=== PATIENT | female | born 1995 | race Caucasian/White ===

== ENCOUNTER → 2020-09-20 | Outpatient (CLI) | payer SELFPAY | LOC: M LABSMTC 13:38 | PROVIDERS: ATTEND Pediatrics | DX: Z20.828 Contact with and (suspected) exposure to other viral communicable diseases (principal) ==

== ENCOUNTER → 2021-07-26 | Outpatient (CLI) | payer OTHER ==
--- NOTE | 2021-07-26 15:50 | REP ---
INDICATION: PREG 19+ WKS GROWTH COMPARISON: None. TECHNIQUE: Transabdominal obstetrical ultrasound with color Doppler evaluation. FINDINGS: Examination demonstrates a single live intrauterine in breech presentation. motion is identified by technologist. Placenta is noted posterior and grade 0 without evidence for placenta previa or abruption. Amniotic fluid volume is normal. Cervix measures 3.1 cm in length and appears closed.. Selected gestational age: 20 weeks 3 days with RAFFI 12/10/2021. Gestational age by current measurements 20 weeks 2 days with RAFFI 12/11/2021. FHR equals 133 beats per minute. BPD: 4.8 cm at 20 weeks 3 days HC: 17.9 cm at 20 weeks 2 days AC: 14.8 cm at 20 weeks 1 day FL: 3.2 cm at 20 weeks 0 days HL: 3.1 cm at 20 weeks 2 days HC/AC: 1.21 Estimated weight 332 grams (29thpercentile). Anatomical assessment demonstrates normal structures including cranium, choroid plexus, cavum, cerebellum/posterior fossa, facial features, lungs, diaphragm, stomach, cord insertion/three-vessel cord, kidneys/bladder, spine, and extremities. IMPRESSION: Single live intrauterine in breech presentation. Limited evaluation of the heart/ventricular outflow tracts. Remainder of the anatomical assessment is complete and normal. <Electronically signed by Esteban Cruz > 07/26/21 [id number]
== END ==
LOC: M RAD 14:15
PROVIDERS: ATTEND Advanced Practice Midwife
DX: Z36.3 Encounter for antenatal screening for malformations (principal); Z3A.20 20 weeks gestation of pregnancy

== ENCOUNTER 2021-10-24 11:36 | Outpatient (CLI) | payer OTHER ==
[~2021-10-24] VITALS: Ht 167.6 cm; Wt 87.8 kg
[2021-10-24 11:57] VITALS: BP 146/88
[2021-10-24] MEDS ORDERED: PRENTAB9 PO (12:05)
[2021-10-24] MEDS ORDERED: TUMS500C PO (12:05)
[2021-10-24 12:12] VITALS: BP 139/82
[2021-10-24] MEDS ORDERED: LR 1,000 ML IV ONE (14:40)
[2021-10-24 15:39] VITALS: BP 144/96
[2021-10-24 15:45] LABS: HEMATOCRIT 40.6 % (36.0-47.0); HEMOGLOBIN 13.8 g/dl (12.0-15.5); MEAN CORPUSCULAR HEMOGLOBIN 29.9 pg (27.0-33.0); MEAN CORPUSCULAR VOLUME 87.9 fl (80.0-96.0); PLATELET COUNT, AUTOMATED 265 10^3/uL (150-450); RED BLOOD COUNT 4.62 10^6/uL (4.00-5.40); WHITE BLOOD COUNT 10.2 10^3/uL (4.0-10.0)
[2021-10-24 15:55] VITALS: BP 153/100
[2021-10-24 16:03] LABS: INR 0.88; PROTHROMBIN TIME 12.3 SECONDS (12.7-14.5)
[2021-10-24 16:04] LABS: PARTIAL THROMBOPLASTIN TIME 30.7 SECONDS (25.9-37.0)
[2021-10-24] MEDS ORDERED: BETAMETHASONE SOLUSPAN 6MG/ML 5ML VIAL (J0702 PER 3MG) IM SCH (16:05)
[2021-10-24 16:10] VITALS: BP 130/81
[2021-10-24 16:30] LABS: ALT/SGPT 33 U/L (12-78); BILIRUBIN,TOTAL 0.2 MG/DL (0.2-1.0); CREATININE FOR GFR 0.65 MG/DL (0.55-1.30); GLOMERULAR FILTRATION RATE > 60.0 (>60); LDH LACTATE DEHYDROGENASE 200 U/L (84-246); URIC ACID 3.2 MG/DL (2.6-6.0)
[2021-10-24 16:40] LABS: CREATININE,RANDOM URINE < 13.0 MG/DL; TOTAL PROTEIN,RANDOM URINE < 5.0 MG/DL (0.0-12.0)
[2021-10-25] MEDS ORDERED: PEPC10TA6 PO (17:06)
[2021-10-25] MEDS ORDERED: VALT1TAB PO (17:06)
[2021-10-25] MEDS ORDERED: D31000TA2 PO (17:06)
== END 2021-10-24 17:18 | disposition home or self-care (01) ==
LOC: M LDO 11:36
PROVIDERS: ATTEND Registered Nurse
DX: O60.03 Preterm labor without delivery, third trimester (principal); O9A.213 Injury, poisoning and certain other consequences of external causes complicating pregnancy, third trimester; O26.893 Other specified pregnancy related conditions, third trimester; R25.2 Cramp and spasm; Y92.9 Unspecified place or not applicable; Y93.9 Activity, unspecified; Y99.9 Unspecified external cause status; Z3A.33 33 weeks gestation of pregnancy
CPT/HCPCS: 59025; 76816; 76820; 82247; 82565; 82570; 83615; 84156; 84450; 84460; 84550; 85027; 85384; 85610; 85730; 96372; G0378; G0463; J0702

== ENCOUNTER 2021-10-25 16:35 | Outpatient (CLI) | payer OTHER ==
[~2021-10-25] VITALS: Ht 167.6 cm; Wt 86.9 kg
[~2021-10-25 16:35] MED LIST: PRENTAB9 PO; TUMS500C PO
[2021-10-25 16:59] VITALS: BP 140/80
[2021-10-25] MEDS ORDERED: BETAMETHASONE SOLUSPAN 6MG/ML 5ML VIAL (J0702 PER 3MG) IM ONE (17:05)
[2021-10-25] MEDS ORDERED: VALT1TAB PO (17:06)
[2021-10-25] MEDS ORDERED: PEPC10TA6 PO (17:06)
[2021-10-25] MEDS ORDERED: D31000TA2 PO (17:06)
[2021-10-25] MEDS ORDERED: HOME MED LIST COMPLETE! XX SCH (17:10)
[2021-10-25 17:36] VITALS: BP 136/83
== END 2021-10-25 17:37 | disposition home or self-care (01) ==
LOC: M LDO 16:35
PROVIDERS: ATTEND Obstetrics & Gynecology
DX: O60.03 Preterm labor without delivery, third trimester (principal); O9A.213 Injury, poisoning and certain other consequences of external causes complicating pregnancy, third trimester; O26.893 Other specified pregnancy related conditions, third trimester; R25.2 Cramp and spasm; Y92.9 Unspecified place or not applicable; Y93.9 Activity, unspecified; Z3A.33 33 weeks gestation of pregnancy
CPT/HCPCS: 96372; J0702

== ENCOUNTER 2021-11-29 23:17 | Inpatient (IN) | payer OTHER ==
[~2021-11-29] VITALS: Ht 167.6 cm; Wt 90.7 kg
[~2021-11-29 23:17] MED LIST changes: +D31000TA2 PO; +PEPC10TA6 PO; +VALT1TAB PO
[2021-11-29] MEDS ORDERED: ACET325C5 PO (23:35)
[2021-11-29 23:42] VITALS: BP 139/93
[2021-11-30] VITALS (27 sets, daily range): BP systolic 120–210; BP diastolic 63–95
[2021-11-30 00:48] LABS: APPEARANCE, URINE HAZY (CLEAR); BACTERIA, URINE AUTO 1+ (NEGATIVE); BILIRUBIN, URINE AUTO NEGATIVE (NEGATIVE); BLOOD, URINE BLOOD 2+ (NEGATIVE); COLOR, URINE YELLOW (YELLOW); GLUCOSE, URINE (UA) AUTO NEGATIVE (NEGATIVE); KETONE, URINE AUTO TRACE mg/dL (NEGATIVE); LEUKOCYTE ESTERASE, URINE AUTO 2+ (NEGATIVE); MUCUS, URINE SMALL (NEGATIVE); NITRITE, URINE AUTO NEGATIVE (NEGATIVE); PROTEIN, URINE AUTO NEGATIVE (NEGATIVE); RBC, URINE AUTO 3 /HPF (0-3); SPECIFIC GRAVITY URINE AUTO 1.008 (1.002-1.035); SQUAMOUS EPITHELIAL CELL UR AU 6 /HPF (0-6); UROBILINOGEN, URINE AUTO 0.2 mg/dL (0.0-2.0); WBC, URINE AUTO 10 /HPF (0-3)
[2021-11-30] MEDS ORDERED: NS 1,000 ML IV SCH (01:00)
[2021-11-30] MEDS ORDERED: cefTRIAXone SOD 1 GM in D5W MINI-BAG PLUS 50 ML IV ONE ×2 (01:00→14:00)
[2021-11-30] MEDS ORDERED: BUTORPHANOL 2 MG/ML INJ (J0595) IV ONE (03:15)
[2021-11-30] MEDS ORDERED: PROMETHAZINE INJ 25 MG/ML VIAL (J2550) IV ONE (03:15)
[2021-11-30] MEDS: LR 1,000 ML IV SCH ×2 (03:33→11:15)
[2021-11-30 04:54] LABS: HEMATOCRIT 37.3 % (36.0-47.0); MEAN CORPUSCULAR HEMOGLOBIN 30.2 pg (27.0-33.0); MEAN CORPUSCULAR HGB CONC 34.9 g/dl (32.0-36.5); MEAN CORPUSCULAR VOLUME 86.7 fl (80.0-96.0); PLATELET COUNT, AUTOMATED 246 10^3/uL (150-450); WHITE BLOOD COUNT 18.7 10^3/uL (4.0-10.0)
[2021-11-30] MEDS ORDERED: FENTANYL 2MCG/ML ROPIVACAINE 0.2% IN 0.9% NACL 100ML IVBAG As Ordered ONE (05:04)
[2021-11-30 05:11] LABS: ALT/SGPT 41 U/L (12-78); BILIRUBIN,TOTAL 0.3 MG/DL (0.2-1.0); CREATININE FOR GFR 0.75 MG/DL (0.55-1.30); GLOMERULAR FILTRATION RATE > 60.0 (>60); LDH LACTATE DEHYDROGENASE 206 U/L (84-246); URIC ACID 4.7 MG/DL (2.6-6.0)
[2021-11-30] MEDS ORDERED: diphenhydrAMINE 50MG/ML VIAL (J1200) IV PRN (05:45)
[2021-11-30] MEDS ORDERED: FENTANYL/ROPIVACAINE/NACL BAG 100 ML EPIDURAL SCH (05:45)
[2021-11-30] MEDS ORDERED: ePHEDrine SULFATE 25 MG/5 ML(5MG/ML) SYRINGE IV PRN (05:45)
[2021-11-30] MEDS ORDERED: ONDANSETRON 4MG/2ML VIAL IV PRN (05:45)
[2021-11-30] MEDS ORDERED: LACTATED RINGER'S 1000 ML IV PRN (05:45)
[2021-11-30] MEDS ORDERED: EPIDURAL COMMENT XX SCH (05:45)
[2021-11-30] MEDS ORDERED: REFRIGERATOR IV KEYS XX PRN (05:45)
[2021-11-30] MEDS ORDERED: NALOXONE INJ 0.4MG/1ML VIAL (J2310 PER 1MG) IV PRN (05:45)
[2021-11-30] MEDS ORDERED: EPIDURAL/PCA KEYS XX PRN (05:45)
[2021-11-30] MEDS ORDERED: OXYTOCIN DRIP 30 UNITS in IV 1 EA IV PRN ×6 (07:05)
[2021-11-30] MEDS ORDERED: OXYTOCIN INJ 10 UNITS/ML VIAL (J2590) IM PRN (07:05)
[2021-11-30] MEDS ORDERED: TRANEXAMIC ACID INJection 1,000 MG in NS 100 ML IV PRN (07:05)
[2021-11-30] MEDS ORDERED: OXYTOCIN INJ 10 UNITS/ML VIAL (J2590) IV PRN (07:05)
[2021-11-30] MEDS ORDERED: METHYLERGONOVINE MALEATE 0.2 MG/ML VIAL (J2210) IM PRN (07:05)
[2021-11-30] MEDS ORDERED: LIDOCAINE 1% MDV 20ML VIAL INFIL PRN (07:05)
[2021-11-30] MEDS ORDERED: CARBOPROST TROMETHAMINE 250 MCG/ML AMP IM PRN (07:05)
[2021-11-30] MEDS ORDERED: OXYTOCIN 30 UNITS IN 0.9% NaCl 500ML IV BAG (J2590) As Ordered ONE (07:06)
[2021-11-30] MEDS ORDERED: OXYTOCIN INJ 10 UNITS/ML VIAL (J2590) As Ordered ONE (07:06)
[2021-11-30 08:59] LABS: CORD GAS ABE V -9.7; CORD GAS HCO3 V 16.4 MEQ/L; CORD GAS O2 SAT V 79.1 %; CORD GAS PCO2 V 36.7 mmHg; CORD GAS PH V 7.267 UNITS; CORD GAS SBC V 16.5 MEQ/L; CORD GAS TCO2 V 17.5 MEQ/L
[2021-11-30 09:00] LABS: CORD GAS ABE A -9.8; CORD GAS HCO3 A 18.4 MEQ/L; CORD GAS O2 SAT A 51.6 %; CORD GAS PH A 7.193 UNITS; CORD GAS PO2 A 26.4 mmHg; CORD GAS SBC A 15.8 MEQ/L; CORD GAS TCO2 A 19.9 MEQ/L
[2021-11-30] MEDS ORDERED: OXYTOCIN DRIP 30 UNITS in IV 1 EA IV ONE (09:10)
[2021-11-30] MEDS ORDERED: DOCUSATE SODIUM 100MG CAPSULE PO PRN (09:10)
[2021-11-30] MEDS ORDERED: MEASLES,MUMPS,RUBELLA VACCINE INJ (MMR-II) (90707) SC SCH (09:10)
[2021-11-30] MEDS ORDERED: METHYLERGONOVINE MALEATE 0.2 MG TAB PO PRN (09:10)
[2021-11-30] MEDS ORDERED: IBUPROFEN 600MG TAB PO PRN (09:10)
[2021-11-30] MEDS ORDERED: DIBUCAINE 1% OINTMENT 30GM TOP PRN (09:10)
[2021-11-30] MEDS ORDERED: LR 1,000 ML IV SCH (09:10)
[2021-11-30] MEDS ORDERED: ACETAMINOPHEN TAB 650MG DOSE (2X325MG) PO PRN (09:10)
[2021-11-30] MEDS ORDERED: MOM 30ML SUSPENSION UDC PO PRN (09:10)
[2021-11-30] MEDS ORDERED: OXYTOCIN INJ 10 UNITS/ML VIAL (J2590) IV ONE (09:10)
[2021-11-30] MEDS ORDERED: RHOGAM 300 MCG (1500 IU) INJ (J2790) IM SCH (09:10)
[2021-11-30] MEDS ORDERED: ANUSOL HC CREAM 30GM TOP PRN (09:10)
[2021-11-30] MEDS: PRENATAL VITAMINS CHEWABLE TABLET PO SCH (10:02)
[2021-11-30] MEDS ORDERED: cefTRIAXone SOD 1 GM in D5W MINI-BAG PLUS 50 ML IV SCH (14:00)
[2021-11-30] MEDS: ACETAMINOPHEN 500 MG TAB PO PRN (17:15)
[2021-12-01] MEDS: ACETAMINOPHEN 500 MG TAB PO PRN (05:49)
[2021-12-01 06:00] VITALS: BP 113/73
[2021-12-01 07:50] LABS: HEMATOCRIT 33.8 % (36.0-47.0); HEMOGLOBIN 11.5 g/dl (12.0-15.5); MEAN CORPUSCULAR HEMOGLOBIN 29.9 pg (27.0-33.0); MEAN CORPUSCULAR VOLUME 87.8 fl (80.0-96.0); PLATELET COUNT, AUTOMATED 198 10^3/uL (150-450); RED BLOOD COUNT 3.85 10^6/uL (4.00-5.40); WHITE BLOOD COUNT 15.5 10^3/uL (4.0-10.0)
[2021-12-01] MEDS: PRENATAL VITAMINS CHEWABLE TABLET PO SCH (10:23)
[2021-12-01 11:00] VITALS: BP 119/72
[2021-12-01 17:55] VITALS: BP 122/78
[2021-12-02 05:12] VITALS: BP 103/68
[2021-12-02] MEDS ORDERED: IBUP-1022 PO (08:41)
[2021-12-02] MEDS ORDERED: PRENCHW PO (08:41)
[2021-12-02] MEDS ORDERED: COLA100C5 PO (08:41)
[2021-12-02] MEDS: PRENATAL VITAMINS CHEWABLE TABLET PO SCH (10:46)
[2021-12-02] MEDS: ACETAMINOPHEN 500 MG TAB PO PRN (10:47)
== END 2021-12-02 18:15 | disposition home or self-care (01) | DRG 807 ==
LOC: M LDO 23:17 → M LDI 11-30 03:27 → M OBS 11-30 11:00
PROVIDERS: ADMIT Obstetrics & Gynecology; ATTEND Obstetrics & Gynecology
PROC: 10E0XZZ Delivery of Products of Conception, External Approach (ICD-10-PCS; principal; 2021-11-30)
DX: O23.43 Unspecified infection of urinary tract in pregnancy, third trimester (principal); Z37.0 Single live birth; Z3A.38 38 weeks gestation of pregnancy; R03.0 Elevated blood-pressure reading, without diagnosis of hypertension; O77.0 Labor and delivery complicated by meconium in amniotic fluid; O69.3XX0 Labor and delivery complicated by short cord, not applicable or unspecified